=== PATIENT | female | born 1965 | race Caucasian/White ===

== ENCOUNTER 2018-08-16 14:46 | Emergency (ER) | payer OTHER, BC, SELFPAY ==
[2018-08-16 14:50] VITALS: BP 139/82; PULSE 85; RESP 20; TEMP 36.8; O2SAT 98
--- NOTE | 2018-08-16 14:55 | DI.RAD.S_ITS ---
PROCEDURE: XR CHEST 2V INDICATIONS: shortness of breath TECHNIQUE: 2 views of the chest were acquired. COMPARISON: None. FINDINGS: Surgical changes and devices: None. Lungs and pleura: Mild appearance of increased pulmonary vascularity. Mild appearance of coarsened opacities within the bases and retrocardiac region. Mediastinum: Mediastinal contours are normal. Heart size is normal. Bones and chest wall: No suspicious bony abnormalities. Soft tissues appear unremarkable. IMPRESSION: Coarsened bibasilar retrocardiac opacities suggestive of dependent edema versus developing airspace disease such as pneumonia. Dictated by: Breana Prado M.D. on 08/16/2018 at 15:16 Approved by: Breana Prado M.D. on 08/16/2018 at 15:17
--- NOTE | 2018-08-16 15:59 | ED.SOB ---
HPI - SOB/Dyspnea <FREIDA Mendoza - Last Filed: 08/16/18 22:34> General Chief Complaint: Shortness of Breath/Dyspnea Stated Complaint: LIFTED SOMETHING HEAVY HARD TIME BREATHING Time Seen by Provider: 08/16/18 15:01 Source: patient Mode of arrival: ambulatory Limitations: no limitations History of Present Illness 53-year-old female here for complaint of having pain to the right side of her chest and feeling short of breath over the past few days. She states she lifted a water bottle that was heavy and has had the symptoms since that timeframe. She denies any cough. Chest pain is to the right sternal area on palpation. No pain without palpation. She is able speak full sentences. She is ambulatory in the emergency room. No diaphoresis. No trauma to the area. Related Data Home Medications Medication Instructions Recorded Confirmed levothyroxine 175 mcg PO DAILY #0 05/26/10 08/16/18 Fish Oil 1 cap PO DAILY 08/16/18 08/16/18 Previous Rx's Medication Instructions Recorded furosemide 20 mg PO DAILY #14 tab 08/16/18 potassium chloride 20 meq PO DAILY #14 tab 08/16/18 Allergies Allergy/AdvReac Type Severity Reaction Status Date / Time No Known Drug Allergies Allergy Verified 08/16/18 14:50 Review of Systems <FREIDA Mendoza Last Filed: 08/16/18 22:34> Constitutional Denies chills, Denies fever(s), Denies lethargy and Denies weakness Eyes Denies change in vision, Denies eye discharge, Denies irritation and Denies loss of vision ENT Ears, Nose, Mouth, and Throat: Denies change in voice, Denies neck pain and Denies sore throat Cardiovascular Denies chest pain, Denies irregular heart rhythm, Denies lightheadedness, Denies palpitations, Reports dyspnea, Denies dyspnea on exertion and Denies orthopnea Respiratory Denies cough, Reports dyspnea, Denies dyspnea on exertion and Denies wheezing Musculoskeletal Denies neck pain Neurologic Denies confusion, Denies loss of vision and Denies weakness Psychiatric Denies anxiety, Denies confusion, Denies depression, Denies homicidal ideation and Denies suicidal ideation Endocrine Denies palpitations Hematologic/Lymphatic Denies easy bruising Allergic/Immunologic Denies wheezing PFSH <FREIDA Mendoza - Last Filed: 08/16/18 22:34> Social History Smoking Status: Former smoker Social History Smoking Status: Former smoker Exam <FREIDA Mendoza - Last Filed: 08/16/18 22:34> Initial Vital Signs Initial Vital Signs: Vital Signs Temperature 98.2 F 08/16/18 14:50 Pulse Rate 85 08/16/18 14:50 Respiratory Rate 20 08/16/18 14:50 Blood Pressure 139/82 08/16/18 14:50 Pulse Oximetry 98 08/16/18 14:50 Const General: cooperative and well developed Nutritional Appearance: well nourished Orientation: alert, awake, oriented x3 and not confused HENMT Mouth: oral mucosae normal and moist mucous membranes Eyes Conjunctivae: conjunctivae normal Sclera: sclerae normal Pupils: PERRL EOM: EOM intact bilaterally Chest Other: Pain on palpation to the right sternal area. No deformities. No ecchymosis. No signs of trauma. Resp Effort & Inspection: normal respiratory effort, able to speak in complete sentences, no respiratory distress and no use of accessory muscles Auscultation: clear to auscultation bilaterally, no rales, no rhonchi and no wheezes Cardio Rate: regular rate Rhythm: regular rhythm Heart Sounds: no click, no gallops, no murmurs and no rubs Pulses: normal peripheral pulses GI Inspection: non-distended Palpation: soft, no hepatosplenomegaly, No guarding, No pulsatile mass and No tender Auscultation: normal bowel sounds Skin General: no rashes or lesions noted, No jaundice and No petechiae Neuro General: alert, oriented x3, gait normal and no focal motor deficits Speech: speech normal <Reginald Wheatley DO - Last Filed: 08/16/18 23:16> Initial Vital Signs Initial Vital Signs: Vital Signs Temperature 98.2 F 08/16/18 14:50 Pulse Rate 85 08/16/18 14:50 Respiratory Rate 20 08/16/18 14:50 Blood Pressure 139/82 08/16/18 14:50 Pulse Oximetry 98 08/16/18 14:50 Course <FREIDA Mendoza - Last Filed: 08/16/18 22:34> Orders Ordered: ED Orders 08/16/18 14:55 XR chest 2V Stat 08/16/18 15:49 EKG-12 Lead Stat 08/16/18 18:05 B Type Natriuretic Peptide Stat Complete Blood Count AUTO DIFF Stat Comprehensive Metabolic Panel Stat Troponin & CK Cardiac Panel Stat Discontinued Medications Potassium Chloride (Klor-Con M20) 40 meq PO NOW ONE Stop: 08/16/18 20:04 Last Admin: 08/16/18 20:24 Dose: 40 meq Vital Signs - 8 hr 08/16/18 20:42 Pulse Rate 82 Respiratory Rate 16 Blood Pressure 138/72 Pulse Oximetry 97 <Reginald Wheatley DO - Last Filed: 08/16/18 23:16> Orders Ordered: ED Orders 08/16/18 14:55 XR chest 2V Stat 08/16/18 15:49 EKG-12 Lead Stat 08/16/18 18:05 B Type Natriuretic Peptide Stat Complete Blood Count AUTO DIFF Stat Comprehensive Metabolic Panel Stat Troponin & CK Cardiac Panel Stat Discontinued Medications Potassium Chloride (Klor-Con M20) 40 meq PO NOW ONE Stop: 08/16/18 20:04 Last Admin: 08/16/18 20:24 Dose: 40 meq Vital Signs - 8 hr 08/16/18 20:42 Pulse Rate 82 Respiratory Rate 16 Blood Pressure 138/72 Pulse Oximetry 97 MDM - SOB/Dyspnea <FREIDA Mendoza - Last Filed: 08/16/18 22:34> Lab Data Result diagrams: 08/16/18 18:05 08/16/18 18:05 Lab Results 08/16/18 08/16/18 Range/Units 18:05 18:05 WBC 7.7 (4.5-11.0) X10^3/uL RBC 4.23 (4.0-5.2) X10^6/uL Hgb 9.6 L (12.0-16.0) g/dL Hct 30.3 L (36-46) % MCV 71.6 L (80-100) fL MCH 22.6 L (26-34) PG MCHC 31.5 (30-36) % RDW 18.9 H (11.6-14.8) % Plt Count 236 (150-400) X10^3/uL Neut % (Auto) 63.7 (50-75) % Lymph % (Auto) 23.3 L (25-40) % Morgan % (Auto) 10.1 (3-14) % Eos % (Auto) 2.3 (2-4) % Baso % (Auto) 0.6 (0-2) % Neut # (Auto) 4900 (2346-4486) /uL Lymph # (Auto) 1800 (9134-3499) /uL Morgan # (Auto) 800 (0-900) /uL Eos # (Auto) 200 (0-450) /uL Baso # (Auto) 0 (0-100) /uL Sodium 138 (137-145) mmol/L Potassium 3.3 L (3.4-5.1) mmol/L Chloride 104 (98-107) mmol/L Carbon Dioxide 26 (22-32) mmol/L BUN 14 (7-17) mg/dL Creatinine 0.50 L (0.52-1.04) mg/dL Estimated GFR > 60.0 (>60) mL/min BUN/Creatinine Ratio 28.0 H (6-22) Glucose 90 (70-100) mg/dL Calcium 9.4 (8.4-10.2) mg/dL Total Bilirubin 1.1 (0.2-1.3) mg/dL AST 30 (14-36) IU/L ALT 28 (9-52) IU/L Alkaline Phosphatase 74 (38-126) U/L Total Creatine Kinase 145 H (30-135) U/L CK-MB (CK-2) 4.52 H (<2.37) ng/mL CK-MB (CK-2) Rel Index 3.1 (1.5-5.0) % Troponin I 0.033 (0.01-0.034) ng/mL B-Natriuretic Peptide 273 H (<100) Total Protein 8.2 (6.3-8.2) g/dL Albumin 4.3 (3.5-5.0) g/dL Globulin 3.9 (1.7-4.1) g/dL Albumin/Globulin Ratio 1.1 (1.0-2.8) Imaging Data Chest x-ray: Radiologist's impression: [address] [address] XRay Report Signed Patient: Teresa Sow#: [id number] : 1965Acct:[id number] Age/Sex: 53 / FDate of Service: 08/16/18 Loc: ED Accession Number: [id number] Procedure: XR chest 2V Ordering Provider: Marie Hurd D.O. PROCEDURE: XR CHEST 2V INDICATIONS: shortness of breath TECHNIQUE: 2 views of the chest were acquired. COMPARISON: None. FINDINGS: Surgical changes and devices: None. Lungs and pleura: Mild appearance of increased pulmonary vascularity. Mild appearance of coarsened opacities within the bases and retrocardiac region. Mediastinum: Mediastinal contours are normal. Heart size is normal. Bones and chest wall: No suspicious bony abnormalities. Soft tissues appear unremarkable. IMPRESSION: Coarsened bibasilar retrocardiac opacities suggestive of dependent edema versus developing airspace disease such as pneumonia. Dictated by: Breana Prado M.D. on 08/16/2018 at 15:16 Approved by: Breana Prado M.D. on 08/16/2018 at 15:17 ECG Data Interpretation: EKG shows normal sinus rhythm with no ST elevation or depression. No ectopy. Ventricular rate is 79. Pr interval 181. QRS duration 103. QTC of 418. MDM Narrative Medical decision making narrative: Chest x-ray was obtained and shows bibasilar retrocardiac opacities with differential between edema and pneumonia. CBC was obtained and shows a mild anemia otherwise is unremarkable.. Chem panel was obtained shows potassium at 3.3. Otherwise was unremarkable. Cardiac enzymes were obtained and shows CK-MB at 4.52 however CK-MB relative index was normal. Troponin was normal. BNP was elevated at 273. Differential of her symptoms is due to anterior wall chest pain/strain from lifting heavy object to CHF. She is placed on Lasix due to potassium being 3.3 she is also put on potassium 20 mEq daily. She is encouraged to follow up with primary care provider in the next couple days for re-evaluation and referral to Cardiology. For any worsening symptoms return to the emergency room. <Reginald Wheatley, DO - Last Filed: 08/16/18 23:16> Lab Data Lab Results 08/16/18 08/16/18 Range/Units 18:05 18:05 WBC 7.7 (4.5-11.0) X10^3/uL RBC 4.23 (4.0-5.2) X10^6/uL Hgb 9.6 L (12.0-16.0) g/dL Hct 30.3 L (36-46) % MCV 71.6 L (80-100) fL MCH 22.6 L (26-34) PG MCHC 31.5 (30-36) % RDW 18.9 H (11.6-14.8) % Plt Count 236 (150-400) X10^3/uL Neut % (Auto) 63.7 (50-75) % Lymph % (Auto) 23.3 L (25-40) % Morgan % (Auto) 10.1 (3-14) % Eos % (Auto) 2.3 (2-4) % Baso % (Auto) 0.6 (0-2) % Neut # (Auto) 4900 (1725-4890) /uL Lymph # (Auto) 1800 (9591-6252) /uL Morgan # (Auto) 800 (0-900) /uL Eos # (Auto) 200 (0-450) /uL Baso # (Auto) 0 (0-100) /uL Sodium 138 (137-145) mmol/L Potassium 3.3 L (3.4-5.1) mmol/L Chloride 104 (98-107) mmol/L Carbon Dioxide 26 (22-32) mmol/L BUN 14 (7-17) mg/dL Creatinine 0.50 L (0.52-1.04) mg/dL Estimated GFR > 60.0 (>60) mL/min BUN/Creatinine Ratio 28.0 H (6-22) Glucose 90 (70-100) mg/dL Calcium 9.4 (8.4-10.2) mg/dL Total Bilirubin 1.1 (0.2-1.3) mg/dL AST 30 (14-36) IU/L ALT 28 (9-52) IU/L Alkaline Phosphatase 74 (38-126) U/L Total Creatine Kinase 145 H (30-135) U/L CK-MB (CK-2) 4.52 H (<2.37) ng/mL CK-MB (CK-2) Rel Index 3.1 (1.5-5.0) % Troponin I 0.033 (0.01-0.034) ng/mL B-Natriuretic Peptide 273 H (<100) Total Protein 8.2 (6.3-8.2) g/dL Albumin 4.3 (3.5-5.0) g/dL Globulin 3.9 (1.7-4.1) g/dL Albumin/Globulin Ratio 1.1 (1.0-2.8) Discharge Plan Departure Patient Disposition: Home Clinical Impression: Congestive heart failure Discharge Date/Time: 08/16/18 20:43 Interventions: ED Discharge Assessment Last Done: 08/16/18 20:42 Instructions: DI for Heart Failure Activity Restrictions/Additional Instructions: Chest x-ray shows some consolidation in the lung kilpatrick. Otherwise is unremarkable. Laboratory results show elevated BNP with indicates congestive heart failure. He was placed on Lasix which is a water pill use as directed. Lasix can have the side effect of lowering serum potassium. You are also placed on potassium chloride use directed daily as prescribed. Follow up with primary care provider next few days for re-evaluation and discussion for referral to Cardiology. For any worsening symptoms return to the emergency room. Prescriptions: New potassium chloride 20 mEq tablet,ER particles/crystals 20 meq PO DAILY Qty: 14 RF: 0 furosemide 20 mg tablet 20 mg PO DAILY Qty: 14 RF: 0 No Action levothyroxine 175 mcg Tablet 175 mcg PO DAILY Qty: 0 RF: 0 Fish Oil 1 cap PO DAILY RF: 0 Referrals: Rojelio Webb MD [Primary Care Provider] - Stand Alone Forms: Work Release Note <Reginald Wheatley DO - Last Filed: 08/16/18 23:16> Cosign ED Attending Michell Attestation: I was available for consultation during this patient's emergency department encounter
[2018-08-16 18:10] LABS: Add Manual Diff / Slide Review NO; Basophils Absolute Auto 0 /uL (0-100); Basophils Percent Auto 0.6 % (0-2); Eosinophils Absolute Auto 200 /uL (0-450); Eosinophils Percent Auto 2.3 % (2-4); Hematocrit 30.3 % (36-46); Hemoglobin 9.6 g/dL (12.0-16.0); Lymphocytes Absolute Auto 1800 /uL (1100-4500); Lymphocytes Percent Auto 23.3 % (25-40); Mean Corpuscular HGB Conc 31.5 % (30-36); Mean Corpuscular Hemoglobin 22.6 PG (26-34); Mean Corpuscular Volume 71.6 fL (80-100); Monocytes Absolute Auto 800 /uL (0-900); Monocytes Percent Auto 10.1 % (3-14); Neutrophils Absolute Auto 4900 /uL (1500-7000); Neutrophils Percent Auto 63.7 % (50-75); Platelet Count 236 X10^3/uL (150-400); Red Blood Cell Count 4.23 X10^6/uL (4.0-5.2); Red Cell Distribution Width 18.9 % (11.6-14.8); White Blood Cell Count 7.7 X10^3/uL (4.5-11.0)
[2018-08-16 18:22] LABS: Alanine Aminotransferase 28 IU/L (9-52); Albumin 4.3 g/dL (3.5-5.0); Albumin Globulin Ratio 1.1 (1.0-2.8); Alkaline Phosphatase 74 U/L (38-126); Aspartate Aminotransferase 30 IU/L (14-36); Bilirubin Total 1.1 mg/dL (0.2-1.3); Blood Urea Nitrogen 14 mg/dL (7-17); Calcium 9.4 mg/dL (8.4-10.2); Carbon Dioxide 26 mmol/L (22-32); Chloride 104 mmol/L (98-107); Creatine Kinase 145 U/L (30-135); Estimated Glomerular Filt Rate > 60.0 mL/min (>60); Globulin 3.9 g/dL (1.7-4.1); Glucose 90 mg/dL (70-100); HEMOLYSIS < 15 (0-50); Potassium 3.3 mmol/L (3.4-5.1); Sodium 138 mmol/L (137-145); Total Protein 8.2 g/dL (6.3-8.2)
[2018-08-16 18:30] LABS: B Type Natriuretic Peptide 273 (<100)
[2018-08-16 18:34] LABS: Troponin I 0.033 ng/mL (0.01-0.034)
[2018-08-16 18:38] LABS: CKMB % Relative Index 3.1 % (1.5-5.0); Creatine Kinase MB 4.52 ng/mL (<2.37)
[2018-08-16] MEDS: POTASSIUM CHLORIDE 20 MEQ TAB 40 MEQ PO (20:24)
[2018-08-16 20:42] VITALS: BP 138/72; PULSE 82; RESP 16; O2SAT 97
== END 2018-08-16 20:43 | disposition home or self-care (01) ==
PROVIDERS: Emergency Provider Nurse Practitioner Family; PCP Family Medicine
DX: I50.9 Heart failure, unspecified (principal)
CPT/HCPCS: 36591; 71046; 80053; 82550; 82553; 83880; 84484; 85025; 93005; 99282; 99285

== ENCOUNTER → 2018-08-26 08:28 | Outpatient (CLI) | payer OTHER, BC, SELFPAY ==
--- NOTE | 2018-08-26 | DI.ECHO.S_ITS ---
[facility]---------+ [facility] +---------+ : : [address] [place] [address] : : : : [id number] : : : : Phone: [phone] +---------+ Echocardiogram Report + + :Name: OFE PALUMBO Study Date: 08/26/2018 Height: 68 in : :[facility] Weight: 209 lb : : Gender: Female BSA: 2.1 m2 : :: 1965 Age: 53 yrs BP: 108/62 mmHg: :Reason For Study: Congestive Heart Failure : : Performed By: Sheridan Short : :Referring: LIVE TANG : + + Interpretation Summary 1) Mildly increased left ventricular thickness with normal size and normal systolic function (EF 65-70%). 2) Grossly normal right ventricular size and function. 3) No hemodynamically significant valvular abnormalities. 4) There is a moderate to large pericardial effusion noted (diameter 1-2cm). There is mild collapse of the RV in early diastole, suggesting early echo evidence of tamponade. 5) The IVC is dilated (diameter is greater than 2.1 cm) and it collapses less than 50% with a sniff. This suggests a high right atrial pressure of 15 mm Hg. 6) No prior Echo available for comparison. Procedure: A two-dimensional transthoracic echocardiogram with color flow and Doppler was performed. The study quality was technically adequate. There is no prior echocardiogram noted for this patient. The heart rate ranged between 92-93 bpm during the study. Left Ventricle: The left ventricle is normal in size. Left ventricular wall thickness is mildly increased. The ejection fraction is estimated to be 65- 70%. Right Ventricle: The right ventricle grossly appears normal in size with probable normal systolic function. Atria: The left atrium is severely dilated. Right atrial size is normal. The interatrial septum is intact with no evidence for an atrial septal defect. Mitral Valve: The mitral valve is normal in structure and function. There is no mitral regurgitation noted. Aortic Valve: The aortic valve opens well. No aortic regurgitation is present. Tricuspid Valve: The tricuspid valve is normal in structure and function. There is a trace or physiologic amount of tricuspid regurgitation. The right ventricular systolic pressure is estimated to be at least 30 mmHg based on an estimated right atrial pressure of 15 mm Hg. Pulmonic Valve: The pulmonic valve is not well visualized. There is no pulmonic valvular regurgitation. Great Vessels: The aortic root is normal size. The ascending aorta is at the upper limits of normal in size. The aortic arch is at the upper limits of normal in size. The IVC is dilated (diameter is greater than 2.1 cm) and it collapses less than 50% with a sniff. This suggests a high right atrial pressure of 15 mm Hg. Pericardium/ Pleura There is a moderate to large pericardial effusion noted. There is mild collapse of the RV in early diastole, suggesting early echo evidence of tamponade. MMode/2D Measurements & Calculations LVIDd: 3.6 cm Ao root diam: 3.1 cm LVIDs: 2.0 cm Aortic Jxn: 2.3 cm FS: 42.5 % asc Aorta Diam: 3.8 cm IVSd: 1.2 cm Ao Arch Diam (Prox Trans): 3.5 cm LVPWd: 0.87 cm LV daniel. diameter/BSA (cm/m^2): 1.7 LV sys. diameter/BSA (cm/m^2): 0.98 LA dimension: 4.1 cm RA long axis: 5.5 cm LA A2 area: 35.2 cm2 RA area: 13.6 cm2 LA A4 area: 30.6 cm2 RA vol: 28.6 ml LA length (vol): 6.6 cm RA : 13.7 ml/m2 LA vol: 138.8 ml IVC diam: 2.4 cm LA vol index: 66.6 ml/m2 Doppler Measurements & Calculations Ao V2 max: 237.7 cm/sec MV E max brice: 65.8 cm/sec Ao V2 mean: 150.9 cm/sec MV A max brice: 104.2 cm/sec Ao max P.6 mmHg MV E/A: 0.63 Ao mean P.0 mmHg Med Peak E' Brice: 8.6 cm/sec Ao V2 VTI: 40.2 cm E/E' med: 7.6 Lat Peak E' Brice: 6.5 cm/sec E/E' lat: 10.1 E/e' average: 8.8 MV dec time: 0.34 sec MV P1/2t: 100.3 msec TR max brice: 196.9 cm/sec MV P1/2t max brice: 66.9 cm/sec TR max P.5 mmHg MVA(P1/2t): 2.2 cm2 PA V2 max: 114.7 cm/sec PA V2 mean: 78.9 cm/sec PA mean P.8 mmHg PA Accel Time: 0.14 sec Reading Physician:12:31 PM
== END ==
PROVIDERS: PCP Physician Assistant; Visit Provider Physician Assistant
DX: I31.3 Pericardial effusion (noninflammatory) (principal); I50.9 Heart failure, unspecified
CPT/HCPCS: 93306

== ENCOUNTER → 2022-05-14 12:02 | Outpatient (CLI) | payer OTHER, BC, SELFPAY ==
--- NOTE | 2022-05-14 12:08 | DI.ECHO.S_ITS ---
[facility]---------+ [facility] +---------+ : : [address] [place] [address] : : : : [id number] : : : : Phone: [phone] +---------+ Echocardiogram Report + + :Name: OFE PALUMBO Study Date: 05/14/2022 Height: 68 in : :[facility] ReadingLocation: Weight: 196 lb : : Gender: Female BSA: 2.0 m2 : :: 1965 Age: 56 yrs BP: 148/86 mmHg: :Reason For Study: Pericardial effusion : :Ordering Physician: Shahnaz : :Felisa Jarrett Performed By: Ines Contreras : :Referring: SHAHNAZ JARRETT : + + Interpretation Summary Limited Echo: There is no pericardial effusion. Procedure: A two-dimensional transthoracic echocardiogram with color flow and Doppler was performed in limited views only. The patient was in sinus rhythm with heart rates between 60-65 bpm during the exam. Left Ventricle: The left ventricle is normal in size and wall thickness. The ejection fraction is estimated to be 60-65%. Tricuspid Valve: There is trace tricuspid regurgitation. Pericardium/ Pleura There is an anterior echo-free space consistent with a fat pad. There is no pericardial effusion. There is no pleural effusion. MMode/2D Measurements & Calculations LVIDd: 4.4 cm LVIDs: 2.8 cm FS: 36.8 % IVSd: 1.4 cm LVPWd: 1.3 cm LV daniel. diameter/BSA (cm/m^2): 2.2 LV sys. diameter/BSA (cm/m^2): 1.4 Doppler Measurements & Calculations TR max db: 272.7 cm/sec TR max P.7 mmHg Reading Physician:03:24 PM
[2022-05-14 12:36] LABS: Add Manual Diff / Slide Review NO; Basophils Absolute Auto 0 /uL (0-100); Basophils Percent Auto 0.7 % (0-2); Eosinophils Absolute Auto 100 /uL (0-450); Eosinophils Percent Auto 2.6 % (2-4); Hematocrit 42.1 % (36-46); Lymphocytes Absolute Auto 1300 /uL (1100-4500); Lymphocytes Percent Auto 23.8 % (25-40); Mean Corpuscular HGB Conc 33.2 % (30-36); Mean Corpuscular Hemoglobin 31.6 PG (26-34); Mean Corpuscular Volume 95.4 fL (80-100); Monocytes Absolute Auto 500 /uL (0-900); Monocytes Percent Auto 9.3 % (3-14); Neutrophils Absolute Auto 3500 /uL (1500-7000); Neutrophils Percent Auto 63.6 % (50-75); Platelet Count 222 X10^3/uL (150-400); Red Blood Cell Count 4.42 X10^6/uL (4.0-5.2); Red Cell Distribution Width 13.8 % (11.6-14.8); White Blood Cell Count 5.6 X10^3/uL (4.5-11.0)
[2022-05-14 13:21] LABS: Blood Urea Nitrogen 11 mg/dL (7-17); Calcium 9.5 mg/dL (8.4-10.2); Carbon Dioxide 31 mmol/L (22-32); Chloride 99 mmol/L (98-107); Estimated Glomerular Filt Rate > 60 mL/min (>60); Glucose 93 mg/dL (70-100); HEMOLYSIS < 15 (0-50); Potassium 3.7 mmol/L (3.4-5.1); Sodium 139 mmol/L (137-145); Triglycerides 59 mg/dL (35-150)
[2022-05-14 13:42] LABS: Cholesterol 376 mg/dL (140-199); HDL Cholesterol 167 mg/dL (40-60); LDL Cholesterol Calculated 197 mg/dL (<100)
== END ==
PROVIDERS: PCP Physician Assistant; Referring Provider Internal Medicine Cardiovascular Disease; Visit Provider Internal Medicine Cardiovascular Disease
DX: Z00.00 Encounter for general adult medical examination without abnormal findings; I31.39 Other pericardial effusion (noninflammatory)
CPT/HCPCS: 36415; 80048; 80061; 85025; 93307